=== PATIENT | female | born 1955 | race Caucasian/White ===

== ENCOUNTER 2025-06-15 09:06 | Day surgery (SDC) | payer OTHER, MEDICAID ==
[2025-06-14 13:17] VITALS: BMI 28.4
[2025-06-15] MEDS ORDERED: Bupivacaine/Epinephrine 0.25% 30 ML VIAL ONE (09:10)
[2025-06-15] MEDS ORDERED: Acetaminophen 500 MG TAB ONE (09:13)
[2025-06-15] MEDS ORDERED: Ketorolac Tromethamine 30 MG (1 mL) VIAL ONE (09:13)
[2025-06-15 09:46] LABS: #Basophils Less than 0.03 10x3/uL (0.0-0.2); #Eosinophils 0.25 10x3/uL (0.0-0.5); #Monocytes 0.93 10x3/uL (0.0-1.1); #Neutrophils 4.49 10x3/uL (1.5-8.4); %Basophils 0.3 % (0.0-2.0); %Eosinophils 3.8 % (0.0-6.0); %Lymphocytes 12.8 % (18.0-47.0); %Monocytes 14.2 % (0.0-10.0); %Neutrophils 68.6 % (40.0-75.0); Hematocrit 33.5 % (34.9-44.5); Hemoglobin 10.5 g/dL (12.0-15.5); Mean Corpuscular Hemoglobin 28.0 pg (27.0-33.0); Mean Corpuscular Volume 89.3 fL (81.6-98.3); Platelet Count 265 10x3/uL (150-450); Red Blood Cell (RBC) Count 3.75 10x6/uL (3.90-5.03); White Blood Cell (WBC) Count 6.55 10x3/uL (3.5-10.5)
[2025-06-15 10:05] LABS: Anion Gap 16 mmol/L (10-20); BUN (Urea Nitrogen) 23 mg/dL (9.8-20.1); Calc. Creatinine Clearance 49 mL/min (70-130); Calcium 9.3 mg/dL (7.8-10.44); Carbon Dioxide 21 mmol/L (23-31); Chloride 105 mmol/L (98-107); Glucose 112 mg/dL (83-110); Potassium 4.2 mmol/L (3.5-5.1); Sodium 138 mmol/L (136-145)
[2025-06-15] MEDS ORDERED: Ondansetron PF 4 MG/2 ML Vial ONE (10:29)
[2025-06-15] MEDS ORDERED: Lidocaine 1% PF 5 ML VIAL ONE (10:29)
[2025-06-15] MEDS ORDERED: PROPOFOL 20 ML ONE (10:30)
[2025-06-15] MEDS ORDERED: CEFAZOLIN 1 GM VIAL ONE (11:07)
[2025-06-15] MEDS ORDERED: HYDROcodone/Acetaminophen 5/325 mg Tablet ONE (12:17)
== END 2025-06-15 12:35 | disposition home or self-care (01) ==
LOC: CSHSDC 09:06
PROVIDERS: ATTEND Specialist
PROC: 05H533Z Insertion of Infusion Device into Right Subclavian Vein, Percutaneous Approach (ICD-10-PCS; principal; 2025-06-15)
DX: C34.12 Malignant neoplasm of upper lobe, left bronchus or lung (principal); J44.9 Chronic obstructive pulmonary disease, unspecified; I25.10 Atherosclerotic heart disease of native coronary artery without angina pectoris; I10 Essential (primary) hypertension; E03.9 Hypothyroidism, unspecified; E11.9 Type 2 diabetes mellitus without complications; E78.5 Hyperlipidemia, unspecified; Z79.899 Other long term (current) drug therapy; Z88.5 Allergy status to narcotic agent; Z91.040 Latex allergy status; Z88.8 Allergy status to other drugs, medicaments and biological substances
CPT/HCPCS: 36561; 71045; 80048; 85025; C1788; J0690; J1100; J1642; J1885; J2250; J2405; J2704; J3010